=== PATIENT | male | born 1945 | race Caucasian/White ===

== ENCOUNTER 2020-04-12 06:33 | Day surgery (SDC) | payer MEDICARE, SELFPAY ==
[2020-03-17 14:17] VITALS: BMI 29.8
[2020-04-12] VITALS (7 sets, daily range): BP systolic 119–132; BP diastolic 78–85; PULSE 52–60; RESP 14–16; TEMP 36.3–36.6; O2SAT 93–99; BMI 25.9
--- NOTE | 2020-04-12 07:50 | HP.PCM_ITS ---
History and Physical Date of Admission: 04/12/20 [facility] [address] [place] [address] OFFICE VISIT Date of Service: 03/17/20 MR#: [id number] Acct: [id number] Name: HARRIET GARCÍA Rep #: [id number] : 1945 Provider: Dr. Margarito Charles MD Age/Sex: 74/M Location: [facility] Status: Signed Intake Vital Signs 03/17/20 BMI 29.8 03/17/20 Height 5 ft 11 in 03/17/20 Weight: 180 lb 03/17/20 BP 130/85 H 03/17/20 Blood Pressure Location Rt brachial 03/17/20 Position Sitting 03/17/20 Respiration 16 03/17/20 Pulse 73 03/17/20 Pulse Source Monitor 03/17/20 Temp 98.3 F 03/17/20 Temp Source Temporal 03/17/20 Pulse Oximetry (%) 96 03/17/20 Oxygen Delivery Method room air Intake Visit Reasons: Cscope Consult Nail Kegger Required: No Is patient in pain?: No Allergies latex Adverse Reaction (Verified 03/17/20 13:58) Hives SHINGLE MEDICATION Allergy (Uncoded 03/17/20 13:58) Other Medications Doxazosin Mesylate 4 mg PO DAILY 08/23/15 [History Confirmed 03/17/20] Lisinopril 40 mg PO DAILY 08/23/15 [History Confirmed 03/17/20] aloe vera 25 mg capsule 475 mg PO DAILY cap 03/17/20 [History Confirmed 03/17/20] amlodipine 5 mg tablet 5 mg PO DAILY tab 03/17/20 [History Confirmed 03/17/20] calcium carbonate 390 mg calcium (1,000 mg) tablet 390 mg PO DAILY 03/17/20 [History Confirmed 03/17/20] cholecalciferol (vitamin D3) 25 mcg (1,000 unit) capsule 75 mcg PO DAILY cap [History Confirmed 03/17/20] loratadine 10 mg tablet 10 mg PO DAILY 03/17/20 [History Confirmed 03/17/20] triamcinolone acetonide 0.1 % topical cream 1 applic TOPICAL TID g 03/17/20 [History Confirmed 03/17/20] vitamin E (dl, acetate) 400 unit capsule 400 unit PO BID cap 03/17/20 [History Confirmed 03/17/20] [facility] Medical History Hx of head injury (Acute) Back problem (Acute) Occult blood positive stool (Acute) Constipation (Acute) Hypertension (Chronic) Heart murmur (Acute) Surgical History Hx of colonoscopy (Acute) History of esophagogastroduodenoscopy (EGD) (Acute) Hx of left inguinal hernia repair (Acute) History of cholecystectomy (Acute) History of back surgery (Acute) Family History Brother Colon cancer Prostate cancer Lung cancer Parkinsons disease Social History (Updated 03/20/20 @ 11:[address] Juvenal Charles MD) Smoking Status: Former smoker second hand exposure: No alcohol intake: current alcohol intake frequency: holidays/special occasions only substance use type: does not use caffeine: Yes what type of physical activity do you participate in: swimming frequency: 3-4 times per week seatbelt use: always HPI HPI HPI: HARRIET GARCÍA, is a 74 M who presents to the office today for Evaluation for positive occult blood test.Patient had a colonoscopy in 2014 was noted to have a tubular adenoma in the transverse colon. He does suffer from constipation. He has a fairly strong family history of colon cancer with his oldest and youngest brother both having colon cancer in his younger brother having to have a colostomy placed. The patient is not complaining of any abdominal pain he is not noticing any difficulty moving his bowels at this time. Patient is not experiencing any reflux symptoms. ROS General General: No weight change, appetite, fatigue, colon cancer, breast cancer or weakness HEENT HEENT: No difficulty swallowing, eye injury, eye surgery, swollen glands or hoarseness Endo Endocrine: No thyroid disease, diabetes mellitus, thyroid cancer, Hair loss, heat intolerance or cold intolerance Skin Skin: No rash or changing moles Musc Musculoskeletal: Yes back problems; no arthritis, rheumatoid arthritis, gout or joint pain Cardio Cardiovascular: Yes murmur and high blood pressure; no pacemaker, heart disease, atrial fibrillation, heart attack, heart stent, palpitations, shortness of breat with exertion or chest pain Psych Psychiatric: No depression, anxiety or hearing voices Resp Respiratory: No shortness of breath, No sleep apnea, Yes cough, No COPD, No asthma, No emphysema, No wheezing Gastro Gastrointestinal: No abdominal pain, No nausea or vomiting, No diarrhea, Yes constipation, Yes blood in stool, Yes acid reflux, No hemorrhoids, No ulcers, No gallbladder problem, No black,tarry stools Stephan Hematologic: No blood thinners, No blood disorders, No bleeding, No anemia, No blood clots Neuro Neurologic: No system reviewed and no additional complaints, except as docu, No as per HPI, No abnormal walking, No abnormal hearing, No abnormal movements, No abnormal speech, No behavioral changes, No burning sensations, No confusion, No seizure-like activity, No unsteadiness, No dizziness, No localized weakness, No frequent falls, No headache(s), No lack of coordination, No loss of vision, No memory loss, No numbness, No other visual disturbances, No radiating pain, No restless legs, No sensory deficit, No fainting, No tingling, No tremor(s), No weakness, No other Exam Const General: no acute distress, well developed, well hydrated Orientation: oriented to person, oriented to place, oriented to time [facility] Head: normocephalic, atraumatic Ears: external ears normal Mouth: moist mucous membranes Eyes Sclera: sclerae normal Pupils: normal by confrontation Neck Neck: no lymphadenopathy noted Neck mass: No Thyroid: thyroid normal, symmetrical Chest Chest palpation & inspection: normal inspection of the chest Resp Effort & Inspection: normal respiratory effort Auscultation: clear to auscultation bilaterally Percussion: percussion normal Cardio Rate: regular rate Rhythm: regular rhythm Heart Sounds: murmur GI Palpation: soft, no hepatosplenomegaly, no masses, nontender Rectal Exam: other Other: Rectal exam deferred. Extrem General: normal to inspection, no clubbing, cyanosis or edema Assessment & Plan Problems 1. Heme positive stool R19.5 Plan I have discussed the above with the patient. I have offered the patient colonoscopy for evaluation. I have explained the risks/benefits of the procedure and described the procedure. I have discussed the risks with the patient, including but not limited to: infection, bleeding, perforation of the GI tract requiring emergency surgery, inability to complete the procedure, injury to any internal organs, complications of anesthesia, etc. - the patient understands and agrees to proceed. I have answered all the patient's questions to the patient's satisfaction and the patient has no further questions. The patient has been given instructions for the colon cleansing preparation. Orders Orders: Colonoscopy 03/17/20 Coding Level of Care Code Off vis,new,level 3 Diagnoses Heme positive stool R19.5 03/20/20 1110 <Electronically signed by Juvenal santo MD> Date _ Juvenal Charles MD [facility] Signature: Date (if applicable) CC: KEN Sosa; Dr. Kath Crowley MD ~ I have re-examined the patient. There are no clinical changes since date of exam.
--- NOTE | 2020-04-12 08:00 | COLBX_PTH ---
PATIENT: HARRIET GARCÍA LOC: EN U#:[id number] AGE/SX: 74/M ROOM: RE04/12/[address]: Dr. Juvenal Charles MD : 1945 BED: DIS: 04/12/2020 SPEC #: [id number] RECD: 04/12/20 10:09 STATUS: CHAVO BANDAR #: [id number] UNIQUE: 04/12/20 08:[address]: Juvenal Charles DEPT: SURGICAL PATHOLOGY RECD BY: Berenice Swan ENTERED: 04/12/20 11:11 SP TYPE: COLON BX OTHR DR: Dr. Kath Crowley MD Tissues: Rectum, NOS Procedures: Surgery Specimen Level IV HEADER OPERATION: Colonoscopy (MAC) PRE-OP DIAGNOSIS: Heme-positive stool TISSUE SUBMITTED: Rectal polyp MICROSCOPIC DIAGNOSIS Rectal polyp, biopsy: Fragments of tubular adenoma. AM:marek 04/13/20 MICROSCOPIC DESCRIPTION Slides are reviewed. GROSS DESCRIPTION Received in fixative is one container labeled with the patient's name and designated rectal polyp. The specimen consists of multiple irregular fragments of light gutierrez soft tissue that in aggregate measure 0.4 x 0.3 x 0.1 cm. The specimen is totally submitted in one cassette. / SJ:marek 04/12/20 TC:4 CPT: 90524
--- NOTE | 2020-04-12 08:29 | OP.CCLET_ITS ---
04/12/2020 Kath Crowley [address] [place] [address] Re : Colonoscopy procedure for Dayron Forrester Dear Dr. Crowley This procedure was performed on Sunday, April 12, 2020. My impressions and recommendations are as follows: Impressions : - One 5 mm polyp in the rectum, removed with a hot snare. Resected and retrieved. - Non-bleeding internal hemorrhoids. - Diverticulosis in the sigmoid colon and in the descending colon. No specimens collected. - The examination was otherwise normal. - Melanosis in the colon. No specimens collected. Recommendations : - Discharge patient to home. - Resume previous diet. - Continue present medications. - Await pathology results. - Repeat colonoscopy in 5 years for surveillance. - Return to my office in 1 week. My findings are described in the full procedure note, which is enclosed. If I can be of further assistance, please feel free to contact me at Doctor phone number(s): , Fax: [phone], Work: . Sincerely, MD Juvenal Alvarez MD 04/12/2020 8:28:42 AM This report has been signed electronically.
--- NOTE | 2020-04-12 08:29 | OP.COLON_ITS ---
Patient Name: Dayron Forrester Procedure Date: 04/12/2020 7:54 AM Date of : 1945 Age: 74 Procedure: Colonoscopy Indications: Heme positive stool Providers: Juvenal Charles MD Referring MD: Juvenal Charles MD Medicines: See the Anesthesia note for documentation of the administered medications Patient Profile: This is a 74 year old male. Refer to note in patient chart for documentation of history and physical. Last Colonoscopy: 2014. Complications: No immediate complications. Procedure: Pre-Anesthesia Assessment: - Prior to the procedure, a History and Physical was performed, and patient medications and allergies were reviewed. The patient's tolerance of previous anesthesia was also reviewed. The risks and benefits of the procedure and the sedation options and risks were discussed with the patient. All questions were answered, and informed consent was obtained. Prior Anticoagulants: The patient has taken no previous anticoagulant or antiplatelet agents. ASA Grade Assessment: III - A patient with severe systemic disease. After reviewing the risks and benefits, the patient was deemed in satisfactory condition to undergo the procedure. After I obtained informed consent, the scope was passed under direct vision. Throughout the procedure, the patient's blood pressure, pulse, and oxygen saturations were monitored continuously. The adult colonoscope was introduced through the anus and advanced to the cecum, identified by appendiceal orifice and ileocecal valve. The colonoscopy was performed without difficulty. The patient tolerated the procedure well. The quality of the bowel preparation was good. Scope In: 8:06:17 AM Scope Withdrawal Time 0 hours 10 minutes 19 seconds Scope Out: 8:20:50 AM Total Procedure Duration Time 0 hours 14 minutes 33 seconds Findings: A 5 mm polyp was found in the rectum. The polyp was sessile. The polyp was removed with a hot snare. Resection and retrieval were complete. Non-bleeding internal hemorrhoids were found during retroflexion. The hemorrhoids were mild and small. Multiple small-mouthed diverticula were found in the sigmoid colon and descending colon. No biopsies or other specimens were collected for this exam. The exam was otherwise without abnormality. A diffuse area of mild melanosis was found in the cecum. No biopsies or other specimens were collected for this exam. Impression: - One 5 mm polyp in the rectum, removed with a hot snare. Resected and retrieved. - Non-bleeding internal hemorrhoids. - Diverticulosis in the sigmoid colon and in the descending colon. No specimens collected. - The examination was otherwise normal. - Melanosis in the colon. No specimens collected. Recommendation: - Discharge patient to home. - Resume previous diet. - Continue present medications. - Await pathology results. - Repeat colonoscopy in 5 years for surveillance. - Return to my office in 1 week. Procedure Code(s): --- Professional --- 88469, Colonoscopy, flexible; with removal of tumor(s), polyp(s), or other lesion(s) by snare technique Diagnosis Code(s): --- Professional --- K62.1, Rectal polyp K64.8, Other hemorrhoids K63.89, Other specified diseases of intestine R19.5, Other fecal abnormalities K57.30, Diverticulosis of large intestine without perforation or abscess without bleeding CPT copyright 2017 [employer]. All rights reserved. The codes documented in this report are preliminary and upon electrician journeyman wireman review may be revised to meet current compliance requirements. MD Juvenal Alvarez MD 04/12/2020 8:28:42 AM This report has been signed electronically. Number of Addenda: 0 Note Initiated On: 04/12/2020 7:54 AM
== END 2020-04-12 09:36 | disposition home or self-care (01) ==
LOC: EN 06:34 → AC 06:35
PROVIDERS: Anesthesiology; PCP Internal Medicine; Referring Provider Surgery; Visit Provider Surgery
PROC: 0DJD8ZZ Inspection of Lower Intestinal Tract, Via Natural or Artificial Opening Endoscopic (ICD-10-PCS; CPT 45378; principal; 2020-04-12 07:55)
DX: D12.8 Benign neoplasm of rectum (principal); K64.8 Other hemorrhoids; K57.30 Diverticulosis of large intestine without perforation or abscess without bleeding; K63.89 Other specified diseases of intestine; R19.5 Other fecal abnormalities; Z11.59 Encounter for screening for other viral diseases; I10 Essential (primary) hypertension; Z79.899 Other long term (current) drug therapy; Z87.891 Personal history of nicotine dependence; Z80.0 Family history of malignant neoplasm of digestive organs
CPT/HCPCS: 45385; 87635; 88305; G2023; J7120; J1610; J2405; U0003

== ENCOUNTER → 2021-03-07 07:40 | Outpatient (CLI) | payer MEDICARE, SELFPAY ==
[2020-04-12 07:20] VITALS: BMI 25.9
--- NOTE | 2021-03-07 08:05 | EKG12_ITS ---
Test Reason : PREOP Blood Pressure : / mmHG Vent. Rate : 071 BPM Atrial Rate : 071 BPM P-R Int : 150 ms QRS Dur : 086 ms QT Int : 396 ms P-R-T Axes : 017 038 054 degrees QTc Int : 430 ms Normal sinus rhythm Normal ECG Confirmed by ZACH NESS, TIMA ([id number]), copy editor TIFFANIE SERRANO ([id number]) on 03/08/2021 9:05:08 AM Referred By: Ketan Baker Confirmed By:TIMA SERRANO MD
[2021-03-07 08:51] LABS: Absolute Lymphocyte Count 1.23 X10^3/uL (0.83-4.51); Absolute Neutrophil Count 2.8 X10^3/uL (2.0-7.7); Basophil# 0.02 X10^3/uL; Basophil% 0.4 % (0-1); Eosinophil# 0.13 X10^3/uL; Eosinophils% 2.8 % (0-5); Hematocrit 44.9 % (40-54); Hemoglobin 14.8 g/dL (13.0-16.5); Lymphocyte # 1.23 X10^3/ul (0.83-4.51); Lymphocyte % 26.3 % (19-41); Mean Corpuscular Hgb 31.6 pg (27.0-32.0); Mean Corpuscular Volume 95.9 fL (80-94); Mean Platelet Vol. 9.7 fl (6.2-12.0); Monocyte# 0.45 X10^3/uL; Monocyte% 9.6 % (0-10); NRBC Flagged by Analyzer 0 % (0-5); Neutrophil # 2.83 X10^3/uL (2.7-7.7); Neutrophil % 60.7 % (47-70); Platelet Count 221 K/mm3 (150-450); RBC Distribution Width CV 13.2 % (11.6-14.6); RBC Distribution Width SD 47.2 fl (35.1-43.9); Red Blood Count 4.68 M/mm3 (4.6-6.2); White Blood Count 4.7 K/mm3 (4.4-11.0)
[2021-03-07 09:15] LABS: Anion Gap 10 (5-15); BUN 16 mg/dL (7-18); BUN/Creat Ratio 15.8 RATIO (10-20); Calcium,Total 8.7 mg/dL (8.5-10.1); Chloride 106 mmol/L (98-107); Creatinine, Serum 1.01 mg/dL (0.70-1.30); EST Glomerular Filtration Rate 76 mL/min (>60); Est Glom Filt Rate - Afr Amer 92 mL/min (>60); Glucose 102 mg/dL (74-106); Potassium 3.3 mmol/L (3.5-5.1); Sodium Level 139 mmol/L (136-145)
== END ==
PROVIDERS: PCP Internal Medicine; Referring Provider Specialist; Visit Provider Specialist
DX: Z01.818 Encounter for other preprocedural examination (principal); Z01.810 Encounter for preprocedural cardiovascular examination
CPT/HCPCS: 36415; 80048; 85025; 93005

== ENCOUNTER 2021-03-27 12:07 | Observation (INO) | payer MEDICARE, SELFPAY ==
[2020-04-12 07:20] VITALS: BMI 25.9
[2021-03-27 12:07] VITALS: BP 141/85; PULSE 62; RESP 16; TEMP 36.6; O2SAT 98; BMI 27.5
--- NOTE | 2021-03-27 12:33 | CT_ITS ---
STUDY: CT BRAIN WITHOUT CONTRAST REASON FOR EXAM: Male, 75 years old. Vertigo like sx RADIATION DOSAGE (If Supplied By Facility): CTDIvol = ( 44.99 ) mGy, DLP = ( 812.98 ) mGycm TECHNIQUE: Transaxial CT imaging of the brain was performed without administration of intravenous contrast material. Individualized dose optimization techniques were used for this CT. COMPARISON: 08/23/2015 CT scan head FINDINGS: Normal soft tissue structures. Normal calvarium. There is calcification of the bilateral cavernous carotid arteries. There is mild cerebral atrophy with widening of the extra-axial spaces and ventricular dilatation. Normal white matter tracts of the cerebral hemispheres. Normal basal ganglia and thalami. Normal brainstem. There is mild cerebellar atrophy. There is no intracranial hemorrhage. There are no findings of an acute ischemic infarction. Normal visualized paranasal sinuses. CT/Brain/Head without Contrast IMPRESSION: Atrophy. No evidence of acute hemorrhage infarct or edema. Electronically Signed: Rosmery Bell MD at 13:21 EDT Tel , Service support ,
--- NOTE | 2021-03-27 12:39 | EDS_ITS ---
HPI History of Present Illness Chief Complaint: Dizziness Informant: patient Narrative Narrative: Patient is a 75-year-old male who presents to the emergency department for dizziness. He states that this started yesterday. Only lasted a brief while and resolved. It again occurred today. He states it is worse with moving his head. He did have what he describes as carsickness 1 week ago which he is never had before. This was after taking a [place] for hand injury though. He otherwise has been doing well over the past week. He states whenever he turns his head left and right he starts to get dizzy. He does get nauseous and vomit with this. Besides episode of the carsickness he is never had this before. He does get frequent headaches which is not unusual for him. He denies any vision changes. No weakness or loss of sensation in any extremity. He denied any chest pain, shortness of breath or heart palpitations. Denies any falls or head trauma. He has not been taking anything for this. He denies any ear pain or ringing. He is not on any blood thinning medications. He states that approximately 6 weeks ago he had an episode when he went to a store. He has been there many times before in the past but could not find his way home. He had an MRI, carotid study as well as echocardiogram at that time which was negative. They believe he might have suffered a TIA. [facility] Medical History (Updated 04/12/20 @ 07:[address] Juvenal Charles MD) Back problem Constipation Heart murmur Hx of head injury Hypertension Occult blood positive stool Home Medications doxazosin 4 mg PO DAILY 08/23/15 [History Last Taken 03/26/21 21:00] lisinopril 40 mg PO DAILY 08/23/15 [History Last Taken 03/25/21 09:00] aloe vera 25 mg capsule 475 mg PO DAILY cap 03/17/20 [History Last Taken Unknown] amlodipine 5 mg tablet 5 mg PO DAILY tab 03/17/20 [History Last Taken 04/12/20 04:30 5 MG] calcium carbonate 390 mg calcium (1,000 mg) tablet 390 mg PO DAILY 03/17/20 [History Last Taken 03/25/21 12:00] cholecalciferol (vitamin D3) 25 mcg (1,000 unit) capsule 25 mcg PO DAILY cap 03/17/20 [History Last Taken 03/25/21 12:00] loratadine 10 mg tablet 10 mg PO PRN PRN 03/17/20 [History Last Taken 03/25/21 09:00] triamcinolone acetonide 0.1 % topical cream 1 applic TOPICAL DAILY PRN g 03/17/20 [History Last Taken Unknown] vitamin E (dl, acetate) 400 unit capsule 400 unit PO BID cap 03/17/20 [History Last Taken 03/26/21 09:00] aspirin 81 mg PO DAILY 03/27/21 [History Last Taken 03/26/21 09:00] red yeast rice 600 mg PO BID 03/27/21 [History Last Taken 03/26/21 09:00] atorvastatin 20 mg PO QHS #30 tab 03/28/21 [Rx Last Taken Unknown] meclizine 12.5 mg PO TID PRN PRN #30 tab 03/28/21 [Rx Last Taken Unknown] Allergy/AdvReac Type Severity Reaction Status Date / Time amoxicillin [From Augmentin] Allergy Diarrhea Verified 03/27/21 18:15 benzocaine [From Solarcaine] Allergy Rash Verified 03/27/21 18:15 clavulanic acid Allergy Diarrhea Verified 03/27/21 18:13 [From Augmentin] famciclovir Allergy Vomiting Verified 03/27/21 18:15 triclosan [From Solarcaine] Allergy Rash Verified 03/27/21 18:15 SHINGLE MEDICATION Allergy Other Uncoded 03/27/21 12:07 Family History Brother Colon cancer Prostate cancer Lung cancer Parkinsons disease Surgical History History of back surgery History of cholecystectomy History of colonoscopy (~03/2020) History of esophagogastroduodenoscopy (EGD) Hx of colonoscopy Hx of left inguinal hernia repair Social History Smoking Status: Former smoker second hand exposure: No alcohol intake: current alcohol intake frequency: holidays/special occasions only substance use type: does not use caffeine: Yes what type of physical activity do you participate in: swimming frequency: 3-4 times per week seatbelt use: always ROS ROS ED Constitutional Constitutional ED: Denies chills or fever(s) Eyes Eyes: Denies change in vision ENT ENT ED: Denies epistaxis or rhinorrhea Cardiovascular Cardiovascular: Denies chest pain or palpitations Respiratory/Chest Respiratory/Chest: Denies cough, dyspnea or dyspnea on exertion Gastrointestinal Gastrointestinal: Reports nausea and vomiting; Denies abdominal pain or diarrhea Genitourinary Genitourinary ED: Denies dysuria, hematuria or urinary frequency Musculoskeletal Musculoskeletal: Denies back pain or neck pain Integumentary Denies rash Neurologic Neurologic: Reports headache(s) and other Details: Dizziness ; Denies weakness EXAM Physical Exam Const Vital Signs: 03/27/21 12:07 Temperature 97.9 F Temperature Source Temporal Pulse Rate 62 Respiratory Rate 16 Blood Pressure 141/85 H Blood Pressure Mean 103 Pulse Ox 98 Oxygen Delivery Method Room Air Positive well nourished and well developed General Appearance ED: well developed and NAD HEENT Reports normocephalic, head/scalp atraumatic, TM's clear and moist mucous membranes Tympanic Membrane ED: Yes TM's clear Eyes PERRL and EOMs intact bilaterally Eyes Narrative: Fatigable nystagmus to the left. Neck supple General: Negative for tenderness Resp normal respiratory effort and clear to auscultation bilaterally Auscultation: Negative for rales, rhonchi or wheezes Cardio regular rate, regular rhythm and no murmurs GI normal to inspection, nondistended, normoactive bowel sounds Palpation: soft; Negative for guarding or rebound tenderness present Back/Spine no CVA tenderness Extremity normal to inspection General Extremety ED: Negative for edema or tenderness General Extremity: Negative for edema Neuro oriented x3, CN's II-XII intact bilaterally and no sensory deficits noted Sensorium / Orientation: alert Motor Exam: strength 5/5 throughout Psych mental status grossly normal Skin no rashes or lesions noted MDM MDM MDM Narrative Medical decision making narrative: Patient presents to the emergency department for dizziness. This is worse with moving his head certain directions. He does have nystagmus on physical exam. No other focal deficits appreciated. NIH score is 0. He is never had this before so we will check CT scan of the head. Will treat with meclizine. Patient's head CT did not reveal any acute findings. After the meclizine I did reassess him. He still feeling quite dizzy. I did give him a dose of Ativan and did a lab work-up on him. The lab findings did not reveal a significant acute abnormality to explain his symptoms. I did attempt to ambulate the patient after the Ativan. He is still off balance and does not appear to be steady on his feet. Given the fact he is failing these treatments he will require hospitalization for further work-up and management. He is agreeable this plan. He otherwise has been stable throughout ED stay. Clinical impression: #1 Dizziness Discharge Plan Disposition Disposition: Acute Care Hospital [facility] Discharge Date/Time: 03/27/21 17:48
[2021-03-27] MEDS: Meclizine HCl 25 MG Tablet PO (12:51)
--- NOTE | 2021-03-27 14:17 | EKG12_ITS ---
Test Reason : DIZZY Blood Pressure : / mmHG Vent. Rate : 061 BPM Atrial Rate : 061 BPM P-R Int : 156 ms QRS Dur : 088 ms QT Int : 434 ms P-R-T Axes : 023 028 042 degrees QTc Int : 436 ms Sinus rhythm with Premature atrial complexes Otherwise normal ECG Confirmed by RANJITH NESS, COLIN ([id number]), copy editor ALO KENDALL ([id number]) on 03/30/2021 1:21:48 PM Referred By: KIRILL Confirmed By:COLIN KASPER MD
[2021-03-27] MEDS: LORazepam 0.5 MG Tablet PO (14:32)
[2021-03-27 15:34] LABS: ALB/GLOB Ratio 1.1 RATIO (0.9-2.4); AST(SGOT) 19 U/L (15-37); Alanine Aminotransfer ALT/SGPT 21 U/L (16-61); Albumin, Serum 3.8 g/dL (3.2-5.0); Alkaline Phosphatase 98 U/L (45-117); Anion Gap 9 (5-15); BUN 12 mg/dL (7-18); BUN/Creat Ratio 14.3 RATIO (10-20); Calcium,Total 8.5 mg/dL (8.5-10.1); Chloride 105 mmol/L (98-107); Creatinine, Serum 0.84 mg/dL (0.70-1.30); EST Glomerular Filtration Rate 95 mL/min (>60); Est Glom Filt Rate - Afr Amer 114 mL/min (>60); Estimated Creatinine Clearance 78.46 ml/min; Globulin 3.4 g/dL (2.2-4.2); Glucose 107 mg/dL (74-106); Potassium 3.5 mmol/L (3.5-5.1); Protein, Total 7.2 g/dL (6.4-8.2); Sodium Level 140 mmol/L (136-145); Troponin-I HS 5.8 pg/mL (3.0-78.5)
[2021-03-27 16:26] LABS: Absolute Lymphocyte Count 0.61 X10^3/uL (0.83-4.51); Absolute Neutrophil Count 4.9 X10^3/uL (2.0-7.7); Basophil# 0.02 X10^3/uL; Basophil% 0.3 % (0-1); Eosinophil# 0.01 X10^3/uL; Eosinophils% 0.2 % (0-5); Hematocrit 46.1 % (40-54); Hemoglobin 15.5 g/dL (13.0-16.5); Lymphocyte # 0.61 X10^3/ul (0.83-4.51); Lymphocyte % 10.6 % (19-41); Mean Corp Hgb Conc 33.6 g/dL (32-36); Mean Corpuscular Hgb 32.3 pg (27.0-32.0); Mean Platelet Vol. 9.7 fl (6.2-12.0); Monocyte# 0.21 X10^3/uL; Monocyte% 3.6 % (0-10); NRBC Flagged by Analyzer 0 % (0-5); Neutrophil # 4.91 X10^3/uL (2.7-7.7); Neutrophil % 85.1 % (47-70); Platelet Count 223 K/mm3 (150-450); RBC Distribution Width CV 13.1 % (11.6-14.6); RBC Distribution Width SD 46.7 fl (35.1-43.9); White Blood Count 5.8 K/mm3 (4.4-11.0)
[2021-03-27 16:52] VITALS: BP 131/99; PULSE 60; RESP 18; O2SAT 95
[2021-03-27 16:59] VITALS: BP 137/99; PULSE 60; RESP 18; TEMP 36.6; O2SAT 95
--- NOTE | 2021-03-27 17:37 | HP.PCM.HOS_ITS ---
Documented by User: Sharita Johnson NP, [employer] 03/27/21 17:54 HPI - General General Date of Admission: 03/27/21 Chief Complaint: Dizziness HPI Narrative HARRIET GARCÍA, is a 75 M who presents to the emergency room due to dizziness. Patient states this began yesterday afternoon. He states he was at a horse sale and developed sudden dizziness and felt like he was going to fall over. He describes associated nausea. He states he thought he just needed to eat so he sat down to eat lunch and felt mildly improved. He was able to drive himself home on his motorcycle however he states he had to keep his head looking straight forward or dizziness recurred. He states dizziness is worse with turning his head or body. He reports nausea and vomiting this morning associated with dizziness. Denies vision changes. Denies unilateral weakness or focal deficits. Denies speech changes. Patient states 1 month ago he was at a sale with his friends and could not remember how to get home. His notified his primary care provider who ordered an MRI of his brain, neck imaging and echo which reports was all unremarkable. He was told he had a TIA. He has a past medical history of hypertension, history of head injury. [facility] Medical History (Updated 04/12/20 @ 07:[address] Juvenal Charles MD) Back problem Constipation Heart murmur Hx of head injury Hypertension Occult blood positive stool Home Medications doxazosin 4 mg PO DAILY 08/23/15 [History Last Taken 03/26/21 21:00] lisinopril 40 mg PO DAILY 08/23/15 [History Last Taken 03/25/21 09:00] aloe vera 25 mg capsule 475 mg PO DAILY cap 03/17/20 [History Last Taken Unknown] amlodipine 5 mg tablet 5 mg PO DAILY tab 03/17/20 [History Last Taken 04/12/20 04:30 5 MG] calcium carbonate 390 mg calcium (1,000 mg) tablet 390 mg PO DAILY 03/17/20 [History Last Taken 03/25/21 12:00] cholecalciferol (vitamin D3) 25 mcg (1,000 unit) capsule 25 mcg PO DAILY cap 03/17/20 [History Last Taken 03/25/21 12:00] loratadine 10 mg tablet 10 mg PO PRN PRN 03/17/20 [History Last Taken 03/25/21 09:00] triamcinolone acetonide 0.1 % topical cream 1 applic TOPICAL DAILY PRN g 03/17/20 [History Last Taken Unknown] vitamin E (dl, acetate) 400 unit capsule 400 unit PO BID cap 03/17/20 [History Last Taken 03/26/21 09:00] aspirin 81 mg PO DAILY 03/27/21 [History Last Taken 03/26/21 09:00] red yeast rice 600 mg PO BID 03/27/21 [History Last Taken 03/26/21 09:00] Allergy/AdvReac Type Severity Reaction Status Date / Time amoxicillin [From Augmentin] Allergy Diarrhea Verified 03/27/21 18:15 benzocaine [From Solarcaine] Allergy Rash Verified 03/27/21 18:15 clavulanic acid Allergy Diarrhea Verified 03/27/21 18:13 [From Augmentin] famciclovir Allergy Vomiting Verified 03/27/21 18:15 triclosan [From Solarcaine] Allergy Rash Verified 03/27/21 18:15 SHINGLE MEDICATION Allergy Other Uncoded 03/27/21 12:07 Family History Brother Colon cancer Prostate cancer Lung cancer Parkinsons disease other (Denies known maternal and paternal medical history including cardiac history.) Surgical History History of back surgery History of cholecystectomy History of colonoscopy (~03/2020) History of esophagogastroduodenoscopy (EGD) Hx of colonoscopy Hx of left inguinal hernia repair Social History Smoking Status: Former smoker second hand exposure: No alcohol intake: current alcohol intake frequency: holidays/special occasions only substance use type: does not use caffeine: Yes what type of physical activity do you participate in: swimming frequency: 3-4 times per week seatbelt use: always ROS Constitutional Constitutional: Denies change in weight, chills, fatigue, fever(s) or weakness Eyes Eyes: Denies blurry vision Cardiovascular Cardiovascular: Denies chest pain, edema, lightheadedness, palpitations or syncope Respiratory/Chest Respiratory/Chest: Denies cough, dyspnea, productive cough, shortness of breath at rest, shortness of breath with exertion or wheezing Gastrointestinal Gastrointestinal: Reports nausea and vomiting; Denies abdominal pain, constipation or diarrhea Genitourinary Genitourinary: Denies burning urination, difficulty urinating, dysuria, hematuria, urinary frequency, urinary incontinence or urinary urgency Musculoskeletal Musculoskeletal: Denies back pain, joint pain or muscle weakness Integumentary Integumentary: Denies erythema, lesions, rash or wounds Neurologic Neurologic: Reports dizziness and headache(s); Denies abnormal speech, confusion, focal weakness, numbness, paresthesias, seizure-like activity or syncope Psychiatric Psychiatric: Denies anxiety or depression Hematologic/Lymphatic Hematologic/Lymphatic: Denies anemia, easy bleeding or easy bruising Allergic/Immunologic Allergic/Immunologic: Denies hives or asthma Vital Signs Vital Signs Vital Signs: 03/27/21 12:07 03/27/21 12:57 03/27/21 16:52 Temperature 97.9 F Temperature Source Temporal Pulse Rate 62 60 Respiratory Rate 16 18 Respiratory Effort Normal Non-Labored Blood Pressure 141/85 H 131/99 H Blood Pressure Mean 103 109 Pulse Ox 98 95 Oxygen Delivery Method Room Air Room Air 03/27/21 16:59 Temperature 97.9 F Temperature Source Oral Pulse Rate 60 Respiratory Rate 18 Respiratory Effort Blood Pressure 137/99 H Blood Pressure Mean 111 Pulse Ox 95 Oxygen Delivery Method Room Air Weight Weight: 192 lb 0.362 oz Body Mass Index (BMI) 27.5 Physical Exam Const alert, oriented x3 and no apparent distress Orientation / Consciousness: awake, oriented to person, oriented to place and oriented to time HEENT normocephalic and moist oral mucous membranes Eyes PERRL, EOMs intact bilaterally and conjunctivae normal Neck no lymphadenopathy Resp normal respiratory effort and clear to auscultation bilaterally Cardio regular rate, regular rhythm and no murmurs Peripheral Pulses: pulses 2+ throughout GI normal to inspection, nondistended, normoactive bowel sounds, non-tender and non-distended Extremity normal to inspection Skin no rashes or lesions noted Lesions: no lesions Rashes: no rashes Trauma: no lacerations or abrasions Neuro CN's II-XII intact bilaterally, no focal motor deficits, no sensory deficits noted and deep tendon reflexes 2+ bilaterally Psych mental status grossly normal and affect normal Results Lab / Micro Data Result Diagrams: 03/27/21 14:50 03/27/21 14:50 Labs: Laboratory Results - last 24 hr 03/27/21 03/27/21 14:50 14:50 WBC 5.8 RBC 4.80 Hgb 15.5 Hct 46.1 MCV 96.0 H MCH 32.3 H MCHC 33.6 RDW Std Deviation 46.7 H RDW Coeff of [place] 13.1 Plt Count 223 MPV 9.7 Immature Gran % (Auto) 0.200 Neut % (Auto) 85.1 H Lymph % (Auto) 10.6 L [place] % (Auto) 3.6 Eos % (Auto) 0.2 Baso % (Auto) 0.3 Absolute Neuts (auto) 4.9 Absolute Lymphs (auto) 0.61 L Nucleated RBC % 0 Sodium 140 Potassium 3.5 Chloride 105 Carbon Dioxide 26.0 Anion Gap 9 BUN 12 Creatinine 0.84 Estim Creat Clear Calc 78.46 Est GFR (MDRD) Af Amer 114 Est GFR (MDRD) Non-Af 95 BUN/Creatinine Ratio 14.3 Glucose 107 H Calcium 8.5 Total Bilirubin 1.70 H AST 19 ALT 21 Alkaline Phosphatase 98 Troponin I High Sens 5.8 Total Protein 7.2 Albumin 3.8 Globulin 3.4 Albumin/Globulin Ratio 1.[address] 03/27/21 12:33 IMPRESSION: Atrophy. No evidence of acute hemorrhage infarct or edema. Electronically Signed: Rosmery Bell MD at 13:21 EDT Tel , Service support , Assessment & Plan Assessment/Plan (1) Hypertension: PLAN: 1. Dizziness, probable BPPV-recent MRI of brain, neck imaging and echo by PCP due to episode of forgetfulness. Obtain records. Patient reports results were unremarkable and he was diagnosed with TIA. Scheduled meclizine. As needed antiemetics. PT/OT. 2. Recent TIA-Per patient. Obtain records from PCP. Begin aspirin, statin. 3. Hypertension-stable, continue amlodipine, lisinopril. DVT prophylaxis- not indicated, low risk This patient was seen by KEN Mcdowell under the supervision of Dr. Chaney. Documented by User: Dr. Raj Chaney MD 03/27/21 19:26 HPI - General General Date of Admission: 03/27/21 [facility] Medical History (Updated 04/12/20 @ 07:[address] Juvenal Charles MD) Back problem Constipation Heart murmur Hx of head injury Hypertension Occult blood positive stool Home Medications doxazosin 4 mg PO DAILY 08/23/15 [History Last Taken 03/26/21 21:00] lisinopril 40 mg PO DAILY 08/23/15 [History Last Taken 03/25/21 09:00] aloe vera 25 mg capsule 475 mg PO DAILY cap 03/17/20 [History Last Taken Unknown] amlodipine 5 mg tablet 5 mg PO DAILY tab 03/17/20 [History Last Taken 04/12/20 04:30 5 MG] calcium carbonate 390 mg calcium (1,000 mg) tablet 390 mg PO DAILY 03/17/20 [History Last Taken 03/25/21 12:00] cholecalciferol (vitamin D3) 25 mcg (1,000 unit) capsule 25 mcg PO DAILY cap 03/17/20 [History Last Taken 03/25/21 12:00] loratadine 10 mg tablet 10 mg PO PRN PRN 03/17/20 [History Last Taken 03/25/21 09:00] triamcinolone acetonide 0.1 % topical cream 1 applic TOPICAL DAILY PRN g 03/17/20 [History Last Taken Unknown] vitamin E (dl, acetate) 400 unit capsule 400 unit PO BID cap 03/17/20 [History Last Taken 03/26/21 09:00] aspirin 81 mg PO DAILY 03/27/21 [History Last Taken 03/26/21 09:00] red yeast rice 600 mg PO BID 03/27/21 [History Last Taken 03/26/21 09:00] Allergy/AdvReac Type Severity Reaction Status Date / Time amoxicillin [From Augmentin] Allergy Diarrhea Verified 03/27/21 18:15 benzocaine [From Solarcaine] Allergy Rash Verified 03/27/21 18:15 clavulanic acid Allergy Diarrhea Verified 03/27/21 18:13 [From Augmentin] famciclovir Allergy Vomiting Verified 03/27/21 18:15 triclosan [From Solarcaine] Allergy Rash Verified 03/27/21 18:15 SHINGLE MEDICATION Allergy Other Uncoded 03/27/21 12:07 Family History Brother Colon cancer Prostate cancer Lung cancer Parkinsons disease Surgical History History of back surgery History of cholecystectomy History of colonoscopy (~03/2020) History of esophagogastroduodenoscopy (EGD) Hx of colonoscopy Hx of left inguinal hernia repair Social History Smoking Status: Former smoker second hand exposure: No alcohol intake: current alcohol intake frequency: holidays/special occasions only substance use type: does not use caffeine: Yes what type of physical activity do you participate in: swimming frequency: 3-4 times per week seatbelt use: always Results Lab / Micro Data Result Diagrams: 03/27/21 14:50 03/27/21 14:50 Charges/Coding Addendum Addendum: Dr. Chaney: I personally reviewed the chart and examined the patient, and agree with the above findings. 75-year-old male presents to the hospital with a history of hypertension and new onset vertigo. He has had an episode yesterday and it resolved fairly quickly however the episode today is still going on, he has no nystagmus in his eyes but he states that he is nauseated if he looks left or right. He says that he has had episodes of emesis. We will place him on some gentle IV fluids and continue his home medications. He did have an episode a few weeks ago of not knowing how to get home and had an MRI and a stroke work-up which was all unremarkable, we will try to obtain those outpatient records. We will continue with meclizine for now and if necessary can repeat an MRI in the morning if he continues with symptoms. Visit Charges OBSV E&M: 59104 Initial observation care L3
[2021-03-27 17:51] VITALS: BMI 26.6
[2021-03-27 18:35] VITALS: BP 159/88; PULSE 60; RESP 18; TEMP 36.7; O2SAT 99
[2021-03-27] MEDS: 0.9% Saline Lock 10 ML Syringe IV ×2 (18:42→19:30)
[2021-03-27] MEDS: Ondansetron 4 MG/2 ML Vial IV (18:42)
[2021-03-27] MEDS: 0.9% Normal Saline 1,000 ML 100 ML IV (19:30)
[2021-03-27 20:00] VITALS: PULSE 60
[2021-03-27] MEDS: Doxazosin 4 MG Tablet PO (22:27)
[2021-03-28 00:35] VITALS: BP 129/69; PULSE 60; RESP 16; TEMP 36.9; O2SAT 94
[2021-03-28 03:00] VITALS: PULSE 55
[2021-03-28 06:22] VITALS: BP 137/74; PULSE 60; RESP 18; TEMP 36.7; O2SAT 95
[2021-03-28] MEDS: 0.9% Normal Saline 1,000 ML 100 ML IV (06:26)
[2021-03-28 06:50] LABS: Absolute Neutrophil Count 2.6 X10^3/uL (2.0-7.7); Basophil# 0.02 X10^3/uL; Basophil% 0.5 % (0-1); Eosinophil# 0.07 X10^3/uL; Eosinophils% 1.6 % (0-5); Hematocrit 41.4 % (40-54); Hemoglobin 13.7 g/dL (13.0-16.5); Lymphocyte % 29.3 % (19-41); Mean Corp Hgb Conc 33.1 g/dL (32-36); Mean Corpuscular Hgb 31.8 pg (27.0-32.0); Mean Corpuscular Volume 96.1 fL (80-94); Mean Platelet Vol. 9.7 fl (6.2-12.0); Monocyte# 0.44 X10^3/uL; Monocyte% 9.9 % (0-10); NRBC Flagged by Analyzer 0 % (0-5); Neutrophil # 2.59 X10^3/uL (2.7-7.7); Neutrophil % 58.5 % (47-70); Platelet Count 200 K/mm3 (150-450); RBC Distribution Width CV 13.1 % (11.6-14.6); RBC Distribution Width SD 46.8 fl (35.1-43.9); Red Blood Count 4.31 M/mm3 (4.6-6.2); White Blood Count 4.4 K/mm3 (4.4-11.0)
[2021-03-28 07:00] VITALS: PULSE 53
[2021-03-28 07:22] LABS: Anion Gap 6 (5-15); BUN 13 mg/dL (7-18); BUN/Creat Ratio 15.2 RATIO (10-20); Chloride 109 mmol/L (98-107); Creatinine, Serum 0.86 mg/dL (0.70-1.30); EST Glomerular Filtration Rate 92 mL/min (>60); Est Glom Filt Rate - Afr Amer 112 mL/min (>60); Estimated Creatinine Clearance 76.63 ml/min; Glucose 89 mg/dL (74-106); Potassium 3.5 mmol/L (3.5-5.1); Sodium Level 141 mmol/L (136-145)
[2021-03-28 08:18] VITALS: BP 146/75; PULSE 67; RESP 18; TEMP 36.9; O2SAT 98
[2021-03-28] MEDS: Lisinopril 40 MG Tablet PO (08:20)
[2021-03-28] MEDS: amLODIPine 5 MG Tablet PO (08:20)
--- NOTE | 2021-03-28 08:32 | MRI_ITS ---
STUDY: MRI BRAIN WITHOUT CONTRAST REASON FOR EXAM: Male, 75 years old. Ataxia TECHNIQUE: Standardized multiplanar fat and water weighted pulse sequences were obtained. COMPARISON: 03/27/2021 FINDINGS: There is mild cerebral atrophy with widening of the extra-axial spaces and ventricular dilatation. There are multiple white matter hyperintensities, distributed throughout the deep white matter tracts of the cerebral hemispheres, consistent with moderate chronic white matter ischemic changes. Normal bilateral basal ganglia. Normal thalami. There is no extra-axial fluid accumulation. Normal sella turcica, pituitary gland, infundibular stalk, optic chiasm and hypothalamus. Normal tectal plate and pineal gland. Normal midbrain, isatu and medulla. Normal cerebellum. MRI/Brain without Contrast IMPRESSION: No acute intracranial abnormality. Moderate chronic microvascular ischemic changes. Electronically Signed: Viv Wadsworth MD at 11:11 EDT Tel , Service support ,
--- NOTE | 2021-03-28 13:44 | PCM.DC ---
Discharge Instructions Diet Discharge Diet: No restrictions Activity Discharge Activity: Return to Normal Activity Dressing / Incision Call your doctor if you observe: Shortness of breath, Dizziness and Chest pain Follow Up Care Test Results: Test results from this visit will be discussed in further detail at your follow-up appointment, if applicable. Discharge Plan Admission Admit Date/Time: 03/27/21 17:51 Primary Reason for Your Visit: Vertigo Attending Provider: Raj Chaney Primary Care Provider: Kath Crowley Instructions Additional Instructions / Restrictions: Your MRI of brain was normal. Do not drive until vertigo resolves. Follow up with ENT for vestibular therapy. Use walker for support with ambulation until vertigo resolves. Discharge Orders/Prescriptions Prescriptions: New meclizine 12.5 mg Tablet 12.5 mg PO TID PRN PRN (Reason: Dizziness) Qty: 30 RF: 0 atorvastatin 20 mg tablet 20 mg PO QHS Qty: 30 RF: 0 Continued amlodipine 5 mg tablet 5 mg PO DAILY RF: 0 triamcinolone acetonide 0.1 % cream 1 applic TOPICAL DAILY PRN (Reason: Itching) RF: 0 aloe vera 25 mg capsule 475 mg PO DAILY RF: 0 calcium carbonate 390 mg calcium (1,000 mg) tablet 390 mg PO DAILY RF: 0 vitamin E (dl, acetate) 400 unit capsule 400 unit PO BID RF: 0 cholecalciferol (vitamin D3) 25 mcg (1,000 unit) capsule 25 mcg PO DAILY RF: 0 loratadine [Claritin] 10 mg tablet 10 mg PO PRN PRN (Reason: Allergies) RF: 0 doxazosin 4 MG tablet 4 mg PO DAILY RF: 0 lisinopril 40 MG tablet 40 mg PO DAILY RF: 0 aspirin 81 mg tablet,delayed release (DR/EC) 81 mg PO DAILY RF: 0 red yeast rice 600 mg Tablet 600 mg PO BID RF: 0 Referrals / Follow Up: Oneal Garcia MD [STAFF PHYSICIAN] - Within 1 Week Kath Crowley MD [Primary Care Provider] - In 1 Week Disposition Disposition (needs filled in before D/C Order can be placed): Home, Self Care
--- NOTE | 2021-03-28 14:11 | PCM.DC.SUM ---
Documented by User: Sharita Johnson NP, SENIOR COURT OFFICE ASSISTANT-C 03/28/21 14:23 Providers Date of Admission: 03/27/21 Date of Discharge: 03/28/21 Primary Care Physician: Dr. Kath Crowley MD Reason For Visit: OFF BALANCE Diagnosis Discharge Diagnosis (1) Hypertension: Status: Chronic Code(s): I10 - Essential (primary) hypertension Medications at Discharge Home Medications doxazosin 4 mg PO DAILY 08/23/15 lisinopril 40 mg PO DAILY 08/23/15 aloe vera 25 mg capsule 475 mg PO DAILY cap 03/17/20 amlodipine 5 mg tablet 5 mg PO DAILY tab 03/17/20 calcium carbonate 390 mg calcium (1,000 mg) tablet 390 mg PO DAILY 03/17/20 cholecalciferol (vitamin D3) 25 mcg (1,000 unit) capsule 25 mcg PO DAILY cap 03/17/20 loratadine 10 mg tablet 10 mg PO PRN PRN 03/17/20 triamcinolone acetonide 0.1 % topical cream 1 applic TOPICAL DAILY PRN g 03/17/20 vitamin E (dl, acetate) 400 unit capsule 400 unit PO BID cap 03/17/20 aspirin 81 mg PO DAILY 03/27/21 red yeast rice 600 mg PO BID 03/27/21 atorvastatin 20 mg PO QHS #30 tab 03/28/21 meclizine 12.5 mg PO TID PRN PRN #30 tab 03/28/21 Hospital Course Operations None Procedures None Summary of Care Provided Minutes Spent on Discharge: 35 Hospital Course: Patient is a 75 year old male admitted 03/27/21 due to dizziness. 1. BPPV-recent MRI of brain, neck imaging and echo by PCP due to episode of forgetfulness. Obtain records. Patient reports results were unremarkable and he was diagnosed with TIA. Due to persistent dizziness and report of brain fogginess MRI of brain repeated which was negative for stroke or other acute process. Continue as needed meclizine. Refer to ENT for vestibular therapy. Follow-up with PCP in [address]ed not to drive until vertigo resolves. Instructed to use walker with ambulation for support until vertigo resolves. 2. Recent TIA-Per patient, diagnosed by PCP. Continue aspirin, statin added. May discuss with PCP continuing statin versus aspirin only. No recent lipid profile in our system, recommend repeating lipid profile as outpatient. 3. Hypertension-stable, continue amlodipine, lisinopril. Physical Exam Const alert, oriented x3 and no apparent distress Orientation / Consciousness: awake, oriented to person, oriented to place and oriented to time HEENT normocephalic and moist oral mucous membranes Eyes PERRL, EOMs intact bilaterally and conjunctivae normal Neck no lymphadenopathy Resp normal respiratory effort and clear to auscultation bilaterally Cardio regular rate, regular rhythm and no murmurs Peripheral Pulses: pulses 2+ throughout GI normal to inspection, nondistended, normoactive bowel sounds, non-tender and non-distended Extremity normal to inspection Skin no rashes or lesions noted Lesions: no lesions Rashes: no rashes Trauma: no lacerations or abrasions Neuro CN's II-XII intact bilaterally, no focal motor deficits, no sensory deficits noted and deep tendon reflexes 2+ bilaterally Psych mental status grossly normal and affect normal Patient seen and examined prior to discharge. Physical assessment as noted above. Patient is stable for discharge with follow up recommendations as noted above. This patient was seen by KEN Mcdowell under the supervision of Dr. Chaney. Weight / BMI Weight Weight: 185 lb 6.54 oz Body Mass Index (BMI) 26.6 ABG / Lab / Microbiology Data Result Diagrams: 03/28/21 06:02 03/28/21 06:02 Laboratory: Laboratory Results - last 24 hr 03/27/21 03/27/21 03/28/21 14:50 14:50 06:02 WBC 5.8 4.4 RBC 4.80 4.31 L Hgb 15.5 13.7 Hct 46.1 41.4 MCV 96.0 H 96.1 H MCH 32.3 H 31.8 MCHC 33.6 33.1 RDW Std Deviation 46.7 H 46.8 H RDW Coeff of [place] 13.1 13.1 Plt Count 223 200 MPV 9.7 9.7 Immature Gran % (Auto) 0.200 0.200 Neut % (Auto) 85.1 H 58.5 Lymph % (Auto) 10.6 L 29.3 Harding % (Auto) 3.6 9.9 Eos % (Auto) 0.2 1.6 Baso % (Auto) 0.3 0.5 Absolute Neuts (auto) 4.9 2.6 Absolute Lymphs (auto) 0.61 L 1.30 Nucleated RBC % 0 0 Sodium 140 Potassium 3.5 Chloride 105 Carbon Dioxide 26.0 Anion Gap 9 BUN 12 Creatinine 0.84 Estim Creat Clear Calc 78.46 Est GFR (MDRD) Af Amer 114 Est GFR (MDRD) Non-Af 95 BUN/Creatinine Ratio 14.3 Glucose 107 H Calcium 8.5 Total Bilirubin 1.70 H AST 19 ALT 21 Alkaline Phosphatase 98 Troponin I High Sens 5.8 Total Protein 7.2 Albumin 3.8 Globulin 3.4 Albumin/Globulin Ratio 1.1 03/28/21 06:02 WBC RBC Hgb Hct MCV MCH MCHC RDW Std Deviation RDW Coeff of [place] Plt Count MPV Immature Gran % (Auto) Neut % (Auto) Lymph % (Auto) [place] % (Auto) Eos % (Auto) Baso % (Auto) Absolute Neuts (auto) Absolute Lymphs (auto) Nucleated RBC % Sodium 141 Potassium 3.5 Chloride 109 H Carbon Dioxide 26.0 Anion Gap 6 BUN 13 Creatinine 0.86 Estim Creat Clear Calc 76.63 Est GFR (MDRD) Af Amer 112 Est GFR (MDRD) Non-Af 92 BUN/Creatinine Ratio 15.2 Glucose 89 Calcium 8.0 L Total Bilirubin AST ALT Alkaline Phosphatase Troponin I High Sens Total Protein Albumin Globulin Albumin/Globulin Ratio Radiography Diagnostic Testing: Radiology Impression Brain MRI 03/28/21 08:32 IMPRESSION: No acute intracranial abnormality. Moderate chronic microvascular ischemic changes. Electronically Signed: Viv Wadsworth MD at 11:11 EDT Tel , Service support , D/C Instructions Discharge Diet: No restrictions Call your doctor if you observe: Shortness of breath, Dizziness and Chest pain Meaningful Use Info Meaningful Use Diagnoses (Choose all that apply): None applicable Discharge Plan Admission Admit Date/Time: 03/27/21 17:51 Primary Reason for Your Visit: Vertigo Attending Provider: Raj Chaney Primary Care Provider: Kath Crowley Instructions Additional Instructions / Restrictions: Your MRI of brain was normal. Do not drive until vertigo resolves. Follow up with ENT for vestibular therapy. Use walker for support with ambulation until vertigo resolves. Discharge Orders/Prescriptions Prescriptions: New meclizine 12.5 mg Tablet 12.5 mg PO TID PRN PRN (Reason: Dizziness) Qty: 30 RF: 0 atorvastatin 20 mg tablet 20 mg PO QHS Qty: 30 RF: 0 Continued amlodipine 5 mg tablet 5 mg PO DAILY RF: 0 triamcinolone acetonide 0.1 % cream 1 applic TOPICAL DAILY PRN (Reason: Itching) RF: 0 aloe vera 25 mg capsule 475 mg PO DAILY RF: 0 calcium carbonate 390 mg calcium (1,000 mg) tablet 390 mg PO DAILY RF: 0 vitamin E (dl, acetate) 400 unit capsule 400 unit PO BID RF: 0 cholecalciferol (vitamin D3) 25 mcg (1,000 unit) capsule 25 mcg PO DAILY RF: 0 loratadine [Claritin] 10 mg tablet 10 mg PO PRN PRN (Reason: Allergies) RF: 0 doxazosin 4 MG tablet 4 mg PO DAILY RF: 0 lisinopril 40 MG tablet 40 mg PO DAILY RF: 0 aspirin 81 mg tablet,delayed release (DR/EC) 81 mg PO DAILY RF: 0 red yeast rice 600 mg Tablet 600 mg PO BID RF: 0 Referrals / Follow Up: Oneal Garcia MD [STAFF PHYSICIAN] - Within 1 Week Kath Crowley MD [Primary Care Provider] - In 1 Week Disposition Disposition (needs filled in before D/C Order can be placed): Home, Self Care Documented by User: Dr. Raj Chaney MD 03/28/21 16:25 Providers Date of Admission: 03/27/21 Reason For Visit: OFF BALANCE Medications at Discharge Home Medications doxazosin 4 mg PO DAILY 08/23/15 lisinopril 40 mg PO DAILY 08/23/15 aloe vera 25 mg capsule 475 mg PO DAILY cap 03/17/20 amlodipine 5 mg tablet 5 mg PO DAILY tab 03/17/20 calcium carbonate 390 mg calcium (1,000 mg) tablet 390 mg PO DAILY 03/17/20 cholecalciferol (vitamin D3) 25 mcg (1,000 unit) capsule 25 mcg PO DAILY cap 03/17/20 loratadine 10 mg tablet 10 mg PO PRN PRN 03/17/20 triamcinolone acetonide 0.1 % topical cream 1 applic TOPICAL DAILY PRN g 03/17/20 vitamin E (dl, acetate) 400 unit capsule 400 unit PO BID cap 03/17/20 aspirin 81 mg PO DAILY 03/27/21 red yeast rice 600 mg PO BID 03/27/21 atorvastatin 20 mg PO QHS #30 tab 03/28/21 meclizine 12.5 mg PO TID PRN PRN #30 tab 03/28/21 ABG / Lab / Microbiology Data Result Diagrams: 03/28/21 06:02 03/28/21 06:02 Discharge Plan Admission Admit Date/Time: 03/27/21 17:51 Primary Reason for Your Visit: Vertigo Attending Provider: Raj Chaney Primary Care Provider: Kath Crowley Instructions Additional Instructions / Restrictions: Your MRI of brain was normal. Do not drive until vertigo resolves. Follow up with ENT for vestibular therapy. Use walker for support with ambulation until vertigo resolves. Discharge Orders/Prescriptions Prescriptions: New meclizine 12.5 mg Tablet 12.5 mg PO TID PRN PRN (Reason: Dizziness) Qty: 30 RF: 0 atorvastatin 20 mg tablet 20 mg PO QHS Qty: 30 RF: 0 Continued amlodipine 5 mg tablet 5 mg PO DAILY RF: 0 triamcinolone acetonide 0.1 % cream 1 applic TOPICAL DAILY PRN (Reason: Itching) RF: 0 aloe vera 25 mg capsule 475 mg PO DAILY RF: 0 calcium carbonate 390 mg calcium (1,000 mg) tablet 390 mg PO DAILY RF: 0 vitamin E (dl, acetate) 400 unit capsule 400 unit PO BID RF: 0 cholecalciferol (vitamin D3) 25 mcg (1,000 unit) capsule 25 mcg PO DAILY RF: 0 loratadine [Claritin] 10 mg tablet 10 mg PO PRN PRN (Reason: Allergies) RF: 0 doxazosin 4 MG tablet 4 mg PO DAILY RF: 0 lisinopril 40 MG tablet 40 mg PO DAILY RF: 0 aspirin 81 mg tablet,delayed release (DR/EC) 81 mg PO DAILY RF: 0 red yeast rice 600 mg Tablet 600 mg PO BID RF: 0 Referrals / Follow Up: Oneal Garcia MD [STAFF PHYSICIAN] - Within 1 Week Kath Crowley MD [Primary Care Provider] - In 1 Week Disposition Disposition (needs filled in before D/C Order can be placed): Home, Self Care Charges/Coding Addendum Addendum: Dr. Chaney: I personally reviewed the chart and examined the patient, and agree with the above findings. 75-year-old male presents to the hospital with a history of hypertension and new onset vertigo. He has had an episode yesterday and it resolved fairly quickly however the episode today is still going on, he has no nystagmus in his eyes but he states that he is nauseated if he looks left or right. He says that he has had episodes of emesis. We will place him on some gentle IV fluids and continue his home medications. He did have an episode a few weeks ago of not knowing how to get home and had an MRI and a stroke work-up which was all unremarkable, we will try to obtain those outpatient records. We will continue with meclizine for now and if necessary can repeat an MRI in the morning if he continues with symptoms. 03/28/2021: Doing well today, states that his vertigo is significantly improved though he still does have some symptoms of with the more excessive eye movement therefore we proceed with an MRI since we have still not received any outpatient records from his previous MRI and his MRI here was negative. Given his recent TIA followed by this episode, will also place him on a low-dose statin. I do recommend that he follow-up with his PCP in 3 to 5 days as well as ENT as an outpatient for his vertigo. Can continue with meclizine on discharge. I did discuss the plan for discharge with him and he expressed understanding of the risk and benefits going home and would like to go home today. Visit Charges OBSV E&M: 44208 Observation care discharge
--- NOTE | 2021-03-28 14:48 | CHAPLAIN ---
Type of Pastoral Visit _x__ Initial Visit ___ Follow-up Visit ___ On-call Visit ___ General Patient Visit ___ Spiritual Assessment ___ Family Conference ___ Bereavement ___ Rapid Response ___ Code Blue ___ Other (describe below) Pastoral Care Referral From _x__ Patient ___ Family ___ Nurse ___ Physician ___ Textile Supervisor ___ Global Position System Technician ___ Other (describe below) Sacrament/Intervention _x__ Active listening ___ Anointing ___ Yazidism ___ Bereavement ___ Communion _x__ Jolanta exploration ___ _x__ Life review _x__ Prayer ___ Reconciliation ___ Sacrament of Sick _x__ Supportive presence ___ Wedding ___ Other (describe below) Pastoral Comments patient identifies himself as a Catholic and is welcoming of spiritual care; pt spouse is with him; long description of illness and current status; prayer concerns given; no other needs evident at this time
== END 2021-03-28 13:54 | disposition home or self-care (01) ==
LOC: ED 12:39 → PCU 17:07
PROVIDERS: Admitting Provider Family Medicine; Emergency Provider Emergency Medicine; PCP Internal Medicine; Visit Provider Family Medicine
DX: H81.10 Benign paroxysmal vertigo, unspecified ear (principal); I10 Essential (primary) hypertension; K59.00 Constipation, unspecified; Z79.82 Long term (current) use of aspirin; Z79.899 Other long term (current) drug therapy; Z86.73 Personal history of transient ischemic attack (TIA), and cerebral infarction without residual deficits; Z87.891 Personal history of nicotine dependence
CPT/HCPCS: 36415; 70450; 70551; 80048; 80053; 84484; 85025; 93005; 96361; 96374; 97162; 97166; 99218; 99285; J7030; A4216; G0378; J2405

== ENCOUNTER → 2024-02-19 | Outpatient (CLI) | payer MEDICARE, SELFPAY ==
--- NOTE | 2024-02-19 08:40 | RAD_ITS ---
STUDY: X-RAY - ESOPHAGUS (BARIUM SWALLOW) WITH FLUOROSCOPY REASON FOR EXAM: Male, 78 years old. DYSPHAGIA, VOMITING WITHOUT NAUSEA TECHNIQUE: 13 view(s) of the esophagus were obtained following swallowing of barium. FLUOROSCOPY TIME (if supplied): (28 seconds) minutes/seconds. 9.38 mGy. COMPARISON: None. FINDINGS: There is no demonstrated esophageal foreign body. There is no demonstrated stricture or mucosal abnormality. There is a small hiatal hernia of the fundus of the stomach without reflux. The patient ingested a 12 mm tablet at bedtime without any difficulty. There is atherosclerotic tortuosity of the aortic arch and descending thoracic aorta. Normal visualized pulmonary parenchyma. Normal visualized osseous structures of the thorax. RAD/Esophagus Dual Contrast IMPRESSION: Small hiatal hernia without gastroesophageal reflux. Electronically Signed: Gómez Thomas MD at 15:02 EDT ,
== END | disposition home or self-care (01) ==
LOC: RAD 08:31
PROVIDERS: PCP Internal Medicine; Referring Provider Internal Medicine; Visit Provider Internal Medicine
DX: R13.19 Other dysphagia (principal); R11.11 Vomiting without nausea
CPT/HCPCS: 74221

== ENCOUNTER 2024-06-11 07:20 | Day surgery (SDC) | payer MEDICARE, SELFPAY ==
[2024-06-11] VITALS (7 sets, daily range): BP systolic 95–121; BP diastolic 66–85; PULSE 63–78; RESP 14–18; TEMP 36.2–37.1; O2SAT 93–100; BMI 27.1
--- NOTE | 2024-06-11 | IMM_PTH ---
PATIENT: HARRIET GARCÍA LOC: EN U#:[id number] AGE/SX: 79/M ROOM: RE06/11/[address]: Dr. Fish Lopez DO : 1945 BED: DIS: 06/11/2024 SPEC #: [id number] RECD: 06/12/24 11:09 STATUS: CHAVO REPlacido #: [id number] UNIQUE: 06/11/24 00:[address]: Fish Lopez DEPT: IMMUNOHISTOCHEMISTRY RECD BY: Yoan Prieto ENTERED: 06/12/24 11:10 SP TYPE: IMMUNO OTHR DR: Dr. Kath Crowley MD Tissues: Esophagus, NOS Procedures: P53 (initial) KI-67 (add) PHYSICIAN & INSTITUTION [place] [address] SPECIMEN INFORMATION: Tissue Source: Distal esophagus biopsy Clinical Info: Dysphagia Specimen Number: [id number] CPT code: 31977,47566 METHODOLOGY: Deparaffinized sections of prefer/formalin-fixed tissue or PAP/DQ stained slides are incubated with monoclonal/polyclonal antibodies/oligonucleotide probes. Localization is made via biotin free immunoperoxidase method. Appropriate controls are performed and reacted as expected. Results on target cell population are indicated in the following table: RESULTS: ANTIBODY / CLONE RESULT P53 (DO-7) positive, rare cells (wild type pattern) Ki-67 (30-9) positive, low These tests were developed and their performance characteristics determined by [facility]. They may not have been cleared or approved by the U.S. Food and Drug Administration. The FDA has determined that such clearance or approval is not necessary. The above immunohistochemical/dualISH markers are ordered and reviewed by the Pathologist. INTERPRETATION: Distal esophagus, biopsy: Negative for dysplasia. 06/13/2024
[2024-06-11] MEDS: Lactated Ringers 1,000 ML 15 ML IV (07:45)
--- NOTE | 2024-06-11 07:57 | PCM.PRE.AN2 ---
ASA Classification* ASA Classification ASA Classification: 2 Assessment & Plan Anesthesia* Anesthesia Assessment Anesthesia Assessment: Discussed sedation and/or anesthesia options, risks, benefits, and alternatives with patient/parents/legal guardian/POA. Questions invited. The patient/parents/legal guardian/POA seems to understand and agrees to proceed with anesthesia plan. Reviewed the physical assessment, medical history, allergy history and patient home medications list prior to surgery/procedure/anesthetic and documented any changes. Performed airway and anesthesia risk assessments. Anesthesia Type Anesthesia Type: MAC Anesthesia Focused Assessment* Temperature: 97.2 F Pulse Rate: 78 Blood Pressure: 111/85 Respiratory Rate: 16 Pulse Ox: 100 Airway Assessment Mouth opens: >3 cm Mallampati Score: II Focused Labs Anesthesia Preop lab: CBC WBC 4.4 K/mm3 (4.4-11.0) 03/28/21 06:02 RBC 4.31 M/mm3 (4.6-6.2) L 03/28/21 06:02 Hgb 13.7 g/dL (13.0-16.5) 03/28/21 06:02 Hct 41.4 % (40-54) 03/28/21 06:02 Plt Count 200 K/mm3 (150-450) 03/28/21 06:02 CHEMISTRY Potassium 3.5 mmol/L (3.5-5.1) 03/28/21 06:02 Sodium 141 mmol/L (136-145) 03/28/21 06:02 BUN 13 mg/dL (7-18) 03/28/21 06:02 Creatinine 0.86 mg/dL (0.70-1.30) 03/28/21 06:02 Glucose 89 mg/dL (74-106) 03/28/21 06:02 POC Glucose 103 mg/dL (70-110) 08/23/15 13:17 COAG PT 13.0 SECONDS (11.7-14.9) 08/23/15 14:15 Pre-Assessment Diagnosis/Proposed Procedure Planned Operative Procedure(s): EGD Anesthesia History 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 When Was Last Pacemaker Check QUESTION #4 FULL TEXT: You/Your Family Experience fever (hyperthermia) with Anesthesia Last Oral Intake Last Oral intake: Last Oral Intake NPO since 00:00 06/11/24 07:43 Meds taken in AM with sips of water? Meds patient instructed to take am of surgery PONV PONV - dispatch machine runner: PONV - dispatch machine runner Female No 06/10/24 12:22 HX of Motion Sickness No 06/10/24 12:22 HX of N/V After Surgery No 06/10/24 12:22 Non-Smoker Yes 06/10/24 12:22 Duration of Surgery greater No 06/10/24 12:22 than 60 minutes Number of Risk Factors 1 06/10/24 12:22 PONV Score Low Risk 06/10/24 12:22 Height & Weight Height & Weight: Anesthesia: Height & Weight Height 5 ft 10 in 06/11/24 07:43 Weight: 85.729 kg 06/11/24 07:43 Body Mass Index (BMI) 27.1 06/11/24 07:43 Respiratory Assessment Respiratory Assessment - dispatch machine runner: Respiratory Tract Infection Hx - dispatch machine runner Hx Respiratory Tract Infection No 06/10/24 12:22 STOP Sleep Apnea STOP Sleep Apnea - dispatch machine runner: STOP Sleep Apnea - dispatch machine runner Hx Hypertension Yes: CONTROLLED WITH MED 06/10/24 12:22 Hx Sleep Apnea No 06/10/24 12:22 CPAP BIPAP Do you snore loudly (louder No 06/10/24 12:22 than talking or can be heard Do you often feel tired/ No 06/10/24 12:22 fatigued/ sleepy during daytime? Has anyone observed you stop No 06/10/24 12:22 breathing during sleep? STOP Results Negative 06/10/24 12:22 QUESTION #5 FULL TEXT : Do you snore loudly (louder than talking or can be heard through closed doors)? Tobacco Use History Tobacco Use History - dispatch machine runner: Tobacco Use History - dispatch machine runner Tobacco Use Smoking Status Former smoker 06/10/24 12:22 Hx Tobacco Use No 06/10/24 12:22 Years Smoking Packs Smoked per Day Smoking Cessation Date was No - quit smoking greater 06/10/24 12:22 within the last 15 years than 15 years ago Hx Smoking Cessation Date 09/24/00 06/10/24 12:22 Hx Smoking Cessation No 06/10/24 12:22 Counseling Hematologic Medial History Hematologic Hx - dispatch machine runner: Hematologic Medical Hx - nurse licensed practical Hx of Blood Transfusion No 06/10/24 12:22 Hx of Transfusion in last 3 No 06/10/24 12:22 Months Date of Last Transfusion (if within last 3 months) Ever experience any problems No 06/10/24 12:22 with transfusion(s)? Specify any problems Hx of Preganancy in last 3 N/A 06/10/24 12:22 Months Nurse Filling Out Transfusion DSCHRIBER 06/10/24 12:22 & Questions: Date: 06/10/24 06/10/24 12:22 Time: 12:25 06/10/24 12:22 Patient unable to answer at this time (ie. confused, unrespo /Reproduction History /Reproductive History - dispatch machine runner: /Reproductive Hx- dispatch machine runner Hx Now No 06/10/24 12:22 Gestational Age (in weeks): EDC: Hx Hx Para Hx Section SAB No 06/10/24 12:22 Active Medications Active Medications: Current Medications Generic Name Dose Route Start Last Admin Trade Name Freq PRN Reason Stop Dose Admin Lactated Ringer's 1,000 mls @ 15 mls/hr 06/11/24 07:45 06/11/24 07:45 IV 15 mls/hr .Q48H OTILIA Administration PFSH Medical History Wears hearing aid Wears glasses Ambulates with cane High cholesterol Migraine headache Difficulty swallowing Gastric reflux Former smoker Hx of head injury Back problem Occult blood positive stool Constipation Hypertension Heart murmur Home Medications ?Medication ?Instructions ?Recorded ?Last Taken ?Type doxazosin 4 mg tablet 4 mg PO DAILY prostate 08/23/15 03/26/21 21:00 History lisinopril 40 mg tablet 40 mg PO DAILY blood pressure 08/23/15 03/25/21 09:00 History amlodipine 5 mg tablet 5 mg PO DAILY blood pressure 03/17/20 04/12/20 04:30 History 5 MG cholecalciferol (vitamin D3) 25 25 mcg PO DAILY supplement 03/17/20 03/25/21 12:00 History mcg (1,000 unit) capsule loratadine 10 mg tablet (Claritin) 10 mg PO PRN PRN Allergies 03/17/20 03/25/21 09:00 History triamcinolone acetonide 0.1 % 1 applic topical DAILY PRN Itching 03/17/20 Unknown History topical cream vitamin E (dl, acetate) 180 mg 400 unit PO BID vitamin 03/17/20 03/26/21 09:00 History (400 unit) capsule aspirin 81 mg tablet,delayed 81 mg PO DAILY health maintenance 03/27/21 06/10/24 History release famotidine 40 mg tablet 40 mg PO DAILY 06/10/24 Unknown History Allergy/AdvReac Type Severity Reaction Status Date / Time amoxicillin (From Augmentin) Allergy Diarrhea Verified 06/11/24 07:42 benzocaine (From Solarcaine) Allergy Rash Verified 06/11/24 07:42 clavulanic acid (From Allergy Diarrhea Verified 06/11/24 07:42 Augmentin) famciclovir Allergy Vomiting Verified 06/11/24 07:42 Wbieeck-UGD-XqR Reductase Allergy Other Verified 06/11/24 07:42 Inhibitor triclosan (From Solarcaine) Allergy Rash Verified 06/11/24 07:42 Family History Brother Colon cancer Prostate cancer Lung cancer Parkinsons disease Surgical History History of carpal tunnel surgery of right wrist History of carpal tunnel surgery of left wrist History of colonoscopy (~03/2020) Hx of colonoscopy History of esophagogastroduodenoscopy (EGD) Hx of left inguinal hernia repair History of cholecystectomy History of back surgery Social History Smoking Status: Former smoker second hand exposure: No alcohol intake: current alcohol intake frequency: holidays/special occasions only substance use type: does not use caffeine: Yes what type of physical activity do you participate in: swimming frequency: 3-4 times per week seatbelt use: always Review of Systems (Anesthesia) ROS Narrative System reviewed and no additional complaints, except as documented.
--- NOTE | 2024-06-11 08:45 | EGD_PTH ---
PATIENT: HARRIET GARCÍA LOC: EN U#:[id number] AGE/SX: 79/M ROOM: RE06/11/[address]: Dr. Fish Lopez DO : 1945 BED: DIS: 06/11/2024 SPEC #: [id number] RECD: 06/11/24 09:33 STATUS: CHAVO BANDRA #: [id number] UNIQUE: 06/11/24 08:[address]: Fish Lopez DEPT: SURGICAL PATHOLOGY RECD BY: Berenice Swan ENTERED: 06/11/24 14:08 SP TYPE: EGD BIOPSY ELSI DR: Dr. 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 Moderate chronic inflammation and mild acute inflammation. Focal changes consistent with eosinophilic esophagitis. Negative for dysplasia. See comment. 06/12/2024 COMMENT Increased number of eosinophils (more than 20 per high power field) consisting with eosinophilic esophagitis are noted. Alcian blue/PAS stain with matched control is used in the evaluation of the specimen. Immunohistochemistry ([id number]) for P53 and Ki-67 will be performed and results will be reported separately. Correlation with clinical, endoscopic findings and appropriate follow up are necessary. MICROSCOPIC DESCRIPTION Slides are reviewed. GROSS DESCRIPTION Received in fixative is one container labeled with the patient's name and designated Distal esophagus biopsy. The specimen consists of multiple irregular fragments of light gutierrez soft tissue that in aggregate measure 1.2 x 0.4 x 0.1 cm. The specimen is totally submitted in one cassette. 06/11/2024 TC:3 CPT:20264,49200
--- NOTE | 2024-06-11 08:54 | HP.PCM_ITS ---
History and Physical Date of Admission: 06/11/24 FARHAN GARCÍA, is a 78 M who presents to the office today for establishment with [facility]. He has been having dysphagia for over a year. It started at home while eating he would feel food get stuck but he we just drink some water and this would resolve. Then he was at a restaurant and he had a severe episode of dysphasia where he was unable to get the food to pass for over a half hour. Since this he has had no issues. He is unsure if he has ever had an upper scope before. He also tells me he has nausea very often. It is often after he eat a meal and then exerts himself. He feels as if it is related to his gasses prescription. ROS Const Constitutional: Positive for frequent falls and headache(s); No fatigue, fever(s) or weight change ENT ENT: Positive for headache(s) and difficulty swallowing Gastro GI: Positive for constipation, difficulty swallowing, nausea/dyspepsia and vomiting; No abdominal pain, belching, bloating, change in bowel habits, change in stool character, coffee ground emesis, cramping, diarrhea, heartburn, feeling full early, excessive flatus, incontinent of stools, Vomiting blood/hematemesis, Blood in stool, loose stools, Black,tarry stools, pain with swallowing or other Musc Musculoskeletal: Positive for abnormal gait; No joint pain Skin Skin: No yellowing of the eye or itchy eyes Neuro Neurology: Positive for abnormal gait, frequent falls and headache(s) Psych Psychiatric: No anxiety and No depression Endo Endocrine: No fatigue or weight change Aller/Imm Allergy/Immunologic: No itchy eyes Stephan/Lymp Hematologic/Lymphatic: No easy bleeding or easy bruising Exam Const General: cooperative and comfortable Nutritional Appearance: average body habitus and well nourished [facility] Head: normal to inspection Ears: hearing grossly normal bilaterally Nose: external nose normal Face and sinus: normal facial exam Eyes General: appearance normal, both eyes and all related structures Neck Neck: normal visual inspection Chest Chest palpation & inspection: normal inspection of the chest and normal palpation of entire chest wall Resp Effort & Inspection: normal respiratory effort Cardio Palpation: normal PMI GI Inspection: normal to inspection Palpation: no hepatosplenomegaly Skin General: no rashes or lesions noted Neuro General: patient alert Speech: abnormal speech Extrem General: normal to inspection Psych Affect: normal affect Assessment and Plan Assessment and Plan (1) Dysphagia: Status: Acute Plan: Patient is here today for establishment with [facility] for dysphagia and nausea. He has been having dysphagia to solids only for about one year now. He has nausea often with vomiting mostly after eating meals. Differential diagnosis for dysphagia and nausea includes gastroparesis, esophageal stenosis or stricture, or GERD. -Recommended we start work up with an EGD. He was hesitant to have procedures or take more medications. Also suggested starting a PPI but he would like to get an EGD first. -Also discussed getting a gastric emptying study to rule out gastropareses. His nausea and vomiting consistently follow breakfast. He would like to hold off on this test for now. (2) Nausea: Status: Acute Coding Level of Care Code Off vis,new,level 4 Diagnoses Dysphagia R13.10 Nausea R11.0 I have examined the patient and the H&P has been reviewed. There are no clinical changes since date of exam.
--- NOTE | 2024-06-11 09:19 | OP.CCLET_ITS ---
06/11/2024 Kath Crowley [address] [place] [address] Re : Upper GI endoscopy procedure for Dayron Forrester Dear Dr. Crowley This procedure was performed on Tuesday, June 11, 2024. My impressions and recommendations are as follows: Impressions : - Benign-appearing esophageal stenosis. Dilated. - LA Grade C erosive esophagitis with bleeding. Biopsied. - Erythematous mucosa in the gastric body. - No gross lesions in the duodenal bulb. Recommendations : - Discharge patient to home. - Resume previous diet. - Use Protonix (pantoprazole) 40 mg PO BID for 3 months. - Continue present medications. My findings are described in the full procedure note, which is enclosed. If I can be of further assistance, please feel free to contact me at . Sincerely, Fish Lopez, 06/11/2024 9:18:46 AM This report has been signed electronically.
--- NOTE | 2024-06-11 09:19 | OP.EGD_ITS ---
Patient Name: Dayron Forrester Procedure Date: 06/11/2024 8:59 AM Date of : 1945 Age: 79 Procedure: Upper GI endoscopy Indications: Dysphagia, Heartburn Providers: Fish Lopez DO Medicines: Monitored Anesthesia Care Patient Profile: This is a 79 year old male. Refer to note in patient chart for documentation of history and physical. Patient has symptoms of chronic dysphagia and dysphagia with solids. Complications: No immediate complications. Procedure: Pre-Anesthesia Assessment: - Prior to the procedure, a History and Physical was performed, and patient medications and allergies were reviewed. The patient is competent. The risks and benefits of the procedure and the sedation options and risks were discussed with the patient. All questions were answered and informed consent was obtained. Patient identification and proposed procedure were verified by the physician in the pre-procedure area. Mental Status Examination: alert and oriented. Airway Examination: normal oropharyngeal airway and neck mobility. Respiratory Examination: clear to auscultation. CV Examination: normal. Prophylactic Antibiotics: The patient does not require prophylactic antibiotics. Prior Anticoagulants: The patient has taken no anticoagulant or antiplatelet agents except for NSAID medication. ASA Grade Assessment: II - A patient with mild systemic disease. After reviewing the risks and benefits, the patient was deemed in satisfactory condition to undergo the procedure. The anesthesia plan was to use monitored anesthesia care (MAC). Immediately prior to administration of medications, the patient was re-assessed for adequacy to receive sedatives. The heart rate, respiratory rate, oxygen saturations, blood pressure, adequacy of pulmonary ventilation, and response to care were monitored throughout the procedure. The physical status of the patient was re-assessed after the procedure. After obtaining informed consent, the endoscope was passed under direct vision. Throughout the procedure, the patient's blood pressure, pulse, and oxygen saturations were monitored continuously. The Endoscope was introduced through the mouth, and advanced to the second part of duodenum. The upper GI endoscopy was accomplished without difficulty. The patient tolerated the procedure well. Scope In: 9:02:14 AM Scope Out: 9:10:11 AM Total Procedure Duration Time 0 hours 7 minutes 57 seconds Findings: One benign-appearing, intrinsic moderate stenosis was found 38 to 42 cm from the incisors. The stenosis was traversed. A guidewire was placed and the scope was withdrawn. Dilation was performed with a Savary dilator with no resistance at 51 Fr. The dilation site was examined and showed moderate mucosal disruption. LA Grade C (one or more mucosal breaks continuous between tops of 2 or more mucosal folds, less than 75% circumference) esophagitis with bleeding was found 35 to 40 cm from the incisors. Biopsies were taken with a cold forceps for histology. Verification of patient identification for the specimen was done. Estimated blood loss was minimal. Patchy mildly erythematous mucosa without bleeding was found in the gastric body. No gross lesions were noted in the duodenal bulb. Impression: - Benign-appearing esophageal stenosis. Dilated. - LA Grade C erosive esophagitis with bleeding. Biopsied. - Erythematous mucosa in the gastric body. - No gross lesions in the duodenal bulb. Recommendation: - Discharge patient to home. - Resume previous diet. - Use Protonix (pantoprazole) 40 mg PO BID for 3 months. - Continue present medications. Procedure Code(s): --- Professional --- 71622, Esophagogastroduodenoscopy, flexible, transoral; with insertion of guide wire followed by passage of dilator(s) through esophagus over guide wire 21245, 59,51, Esophagogastroduodenoscopy, flexible, transoral; with biopsy, single or multiple CPT copyright 2021 [employer]. All rights reserved. The codes documented in this report are preliminary and upon bankman review may be revised to meet current compliance requirements. Fish Lopez DO 06/11/2024 9:18:46 AM This report has been signed electronically. Number of Addenda: 0 Note Initiated On: 06/11/2024 8:59 AM
--- NOTE | 2024-06-11 09:19 | PCM.POST.ANE ---
Anesthesia: Postop Eval I Current Vital Signs Temperature: 97.8 F Pulse Rate: 72 Blood Pressure: 114/73 Respiratory Rate: 14 Pulse Ox: 95 Oxygen Delivery Method: Room Air Assessment Airway patent: Yes Spontaneous unlabored respirations: Yes Mental status: Asleep nausea: No Vomiting: No Anesthesia Complication: No Fluid Hydration Crystalloid volume administer (ml): 400 Total IV fluid infused: 400 Progress Note Anesthesia document: Postop Eval 1 completed: Yes
[2024-06-11] MEDS: Pantoprazole Sodium 40 MG in 0.9% Normal Saline (100mL MB+) 100 ML 330 MG IV (09:36)
--- NOTE | 2024-06-11 13:35 | PCM.POSTANE2 ---
Anesthesia Postop Eval I Sum Postop Eval Completion status Anesthesia document: Postop Eval 1 completed: Yes Anesthesia Postop Eval I Summary Anesthesia Postop Eval I Summary: Anesthesia Postop Eval I: Assessment Summary Airway patent Yes 06/11/24 09:20 [email or web address] Spontaneous unlabored Yes 06/11/24 09:20 [email or web address] respirations Mental status Asleep 06/11/24 09:20 [email or web address] nausea No 06/11/24 09:20 [email or web address] Vomiting No 06/11/24 09:20 [email or web address] Anesthesia Postop Eval I: Fluid Summary Crystalloid volume administer 400 06/11/24 09:20 [email or web address] (ml) Colloids volume administered ( ml) Blood Product volume administered (ml) Total IV fluid infused 400 06/11/24 09:20 [email or web address] Anesthesia Postop Eval I: Summary Notes Anesthesia Complication No 06/11/24 09:20 [email or web address] Anesthesia Complication Comment: Post-operative progress note Anesthesia: Postop Eval II Evaluation Mental status: Awake Pain Level: 0 nausea: No Vomiting: No
== END 2024-06-11 10:21 | disposition home or self-care (01) ==
LOC: EN 07:26 → AC 07:26
PROVIDERS: PCP Internal Medicine; Referring Provider Internal Medicine; Visit Provider Internal Medicine Gastroenterology
PROC: 0DJ08ZZ Inspection of Upper Intestinal Tract, Via Natural or Artificial Opening Endoscopic (ICD-10-PCS; CPT 43235; principal; 2024-06-11 08:40)
DX: K22.2 Esophageal obstruction (principal); K22.70 Barrett's esophagus without dysplasia; K21.01 Gastro-esophageal reflux disease with esophagitis, with bleeding; I10 Essential (primary) hypertension; Z79.82 Long term (current) use of aspirin; Z79.899 Other long term (current) drug therapy; Z87.891 Personal history of nicotine dependence
CPT/HCPCS: 43248; 43239; 88305; 88312; 88341; 88342; J7120; C1769; J2405